=== PATIENT | male | born 1995 | race African-American/Black ===

== ENCOUNTER 2023-03-08 10:17 | Emergency (ER) | payer OTHER ==
[~2023-03-08] VITALS: Ht 172.7 cm; Wt 84.7 kg
[2023-03-08] MEDS ORDERED: NEUR100C PO (10:37)
[2023-03-08] MEDS ORDERED: HYDR-3713 PO (13:12)
[2023-03-08 13:23] VITALS: BP 121/85; TEMP 98; O2SAT 100
== END 2023-03-08 13:25 | disposition home or self-care (01) ==
LOC: M ED 10:17
DX: M75.101 Unspecified rotator cuff tear or rupture of right shoulder, not specified as traumatic (principal); Z88.4 Allergy status to anesthetic agent; Z79.899 Other long term (current) drug therapy; M54.9 Dorsalgia, unspecified

== ENCOUNTER → 2023-04-01 | Outpatient (CLI) | payer OTHER ==
[~2023-04-01] MED LIST: HYDR-3713 PO; NEUR100C PO; PROHANCE 279.3MG/ML 15ML VIAL As Ordered ONE; PROHANCE 279.3MG/ML 5ML VIAL As Ordered ONE
== END ==
LOC: M RAD 09:00
DX: G37.9 Demyelinating disease of central nervous system, unspecified (principal); R93.89 Abnormal findings on diagnostic imaging of other specified body structures
CPT/HCPCS: 70553; 72156; A9576

== ENCOUNTER 2023-04-28 15:16 | Emergency (ER) | payer OTHER ==
[~2023-04-28] VITALS: Ht 167.6 cm; Wt 90.9 kg
[~2023-04-28 15:16] MED LIST changes: -PROHANCE 279.3MG/ML 15ML VIAL As Ordered ONE; -PROHANCE 279.3MG/ML 5ML VIAL As Ordered ONE
[2023-04-28] MEDS ORDERED: OXYC-517 (15:38)
[2023-04-28] MEDS ORDERED: DOCU100C16 (15:38)
[2023-04-28] MEDS ORDERED: METH-1164 (15:38)
[2023-04-28] MEDS ORDERED: IBUP80TA (15:38)
[2023-04-28] MEDS ORDERED: MELA3TAB30 (15:38)
[2023-04-28] MEDS ORDERED: POLY510P14 (15:38)
[2023-04-28] MEDS ORDERED: ACET1TAB55 (15:38)
[2023-04-28] MEDS ORDERED: NS 1,000 ML IV ONE (16:25)
[2023-04-28] MEDS ORDERED: KETOROLAC 30 MG/ML 1ML VIAL IV ONE (16:25)
[2023-04-28 16:58] LABS: EOS % 0.7 % (0.0-3.0); HEMATOCRIT 45.2 % (42.0-52.0); HEMOGLOBIN 14.8 g/dl (13.5-17.5); LYMPH # 1.3 10^3/uL (1.5-5.0); LYMPH % 31.1 % (24.0-44.0); MEAN CORPUSCULAR HEMOGLOBIN 28.1 pg (27.0-33.0); MEAN CORPUSCULAR HGB CONC 32.7 g/dl (32.0-36.5); MEAN CORPUSCULAR VOLUME 85.8 fl (80.0-96.0); MONO # 0.4 10^3/uL (0.0-0.8); MONO % 9.2 % (2.0-8.0); NEUTROPHILS # 2.3 10^3/uL (1.5-8.5); NEUTROPHILS % 58.3 % (36.0-66.0); PLATELET COUNT, AUTOMATED 146 10^3/uL (150-450); RED BLOOD COUNT 5.27 10^6/uL (4.30-6.10)
[2023-04-28 17:19] LABS: C REACTIVE PROTEIN QUANTITATIV < 0.40 MG/DL (<1.0)
[2023-04-28 17:21] LABS: BLOOD UREA NITROGEN 19 MG/DL (9-23); CALCIUM LEVEL 9.3 MG/DL (8.5-10.1); CARBON DIOXIDE LEVEL 29 MMOL/L (20-31); CHLORIDE LEVEL 106 MMOL/L (98-107); CREATININE FOR GFR 0.86 MG/DL (0.70-1.30); GLOMERULAR FILTRATION RATE > 60.0 (>60); GLUCOSE, FASTING 84 MG/DL (60-100); POTASSIUM SERUM 4.1 MMOL/L (3.5-5.1); SODIUM LEVEL 141 MMOL/L (136-145)
[2023-04-28 18:03] LABS: ERYTHROCYTE SEDIMENTATION RATE 14 mm/hr (0-15)
[2023-04-28] MEDS ORDERED: ACETAMINOPHEN *IV* 1,000 MG in IV 1 EA IV ONE (18:10)
[2023-04-28 19:25] VITALS: BP 122/82; TEMP 98.2; O2SAT 98
[2023-04-28] MEDS ORDERED: KETO10TAB PO (19:26)
== END 2023-04-28 20:00 | disposition home or self-care (01) ==
LOC: M ED 15:16
DX: M54.2 Cervicalgia (principal); G37.9 Demyelinating disease of central nervous system, unspecified; M54.89 Other dorsalgia; Z88.8 Allergy status to other drugs, medicaments and biological substances
CPT/HCPCS: 70450; 80048; 85025; 85652; 86140; 96361; 96365; 96375; 99284; J0131; J1885

== ENCOUNTER → 2023-05-22 | Outpatient (CLI) | payer OTHER ==
[~2023-05-22] MED LIST changes: +ACET1TAB55; +DOCU100C16; +IBUP80TA; +KETO10TAB PO; +MELA3TAB30; +METH-1164; +OXYC-517; +POLY510P14
== END ==
LOC: M PLARAD 12:45
DX: R93.89 Abnormal findings on diagnostic imaging of other specified body structures (principal); M51.26 Other intervertebral disc displacement, lumbar region

== ENCOUNTER 2024-02-18 11:46 | Emergency (ER) | payer OTHER ==
[~2024-02-18] VITALS: Ht 167.6 cm; Wt 93.8 kg
[2024-02-18] MEDS ORDERED: CELE0.09 (11:53)
[2024-02-18] MEDS ORDERED: CAPS0.022 (11:53)
[2024-02-18] MEDS: METHOCARBAMOL 1,000 MG/10 ML VIAL IV ONE (17:04)
[2024-02-18] MEDS: NS 1,000 ML IV ONE (17:04)
[2024-02-18] MEDS: ONDANSETRON 4MG 2ML VIAL IV ONE (17:05)
[2024-02-18] MEDS: KETOROLAC 30 MG/ML 1ML VIAL IV ONE (17:05)
[2024-02-18 17:14] LABS: BASO % 0.3 % (0.0-1.0); EOS # 0.1 10^3/uL (0.0-0.5); EOS % 3.4 % (0.0-3.0); HEMATOCRIT 46.4 % (42.0-52.0); HEMOGLOBIN 15.2 g/dl (13.5-17.5); LYMPH # 1.2 10^3/uL (1.5-5.0); LYMPH % 33.2 % (24.0-44.0); MEAN CORPUSCULAR HEMOGLOBIN 27.6 pg (27.0-33.0); MEAN CORPUSCULAR HGB CONC 32.8 g/dl (32.0-36.5); MEAN CORPUSCULAR VOLUME 84.4 fl (80.0-96.0); MONO # 0.4 10^3/uL (0.0-0.8); MONO % 10.3 % (2.0-8.0); NEUTROPHILS # 1.8 10^3/uL (1.5-8.5); NEUTROPHILS % 52.5 % (36.0-66.0); PLATELET COUNT, AUTOMATED 165 10^3/uL (150-450); WHITE BLOOD COUNT 3.5 10^3/uL (4.0-10.0)
[2024-02-18 17:31] LABS: ALBUMIN 4.2 G/DL (3.2-5.2); ALKALINE PHOSPHATASE 69 U/L (46-116); ALT/SGPT 27 U/L (7.0-40); AST/SGOT 16 U/L (<34); BILIRUBIN,TOTAL 1.1 MG/DL (0.3-1.2); BLOOD UREA NITROGEN 12 MG/DL (9-23); CALCIUM LEVEL 9.4 MG/DL (8.5-10.1); CARBON DIOXIDE LEVEL 29 MMOL/L (20-31); CHLORIDE LEVEL 106 MMOL/L (98-107); CREATININE FOR GFR 0.86 MG/DL (0.70-1.30); GLOMERULAR FILTRATION RATE > 60.0 (>60); GLUCOSE, FASTING 75 MG/DL (60-100); POTASSIUM SERUM 4.1 MMOL/L (3.5-5.1); SODIUM LEVEL 141 MMOL/L (136-145); TOTAL PROTEIN 7.3 G/DL (5.7-8.2)
[2024-02-18] MEDS: methylPREDNISolone 125MG 2ML VIAL IV ONE (18:35)
[2024-02-18] MEDS ORDERED: METH-1165 PO (20:02)
[2024-02-18] MEDS ORDERED: DICL20GE TP (20:02)
[2024-02-18 20:13] VITALS: BP 115/76; TEMP 97; O2SAT 99
== END 2024-02-18 20:14 | disposition home or self-care (01) ==
LOC: M ED 11:46
DX: G43.909 Migraine, unspecified, not intractable, without status migrainosus (principal); G35 Multiple sclerosis; Z79.899 Other long term (current) drug therapy; Z88.8 Allergy status to other drugs, medicaments and biological substances
CPT/HCPCS: 70450; 72125; 80053; 83735; 85025; 96361; 96374; 96375; 99284; J1885; J2405; J2800